=== PATIENT | female | born 1995 | race Caucasian/White ===

== ENCOUNTER 2019-12-09 07:35 | Day surgery (SDC) | payer MEDICAID ==
[~2019-12-09 07:35] MED LIST: Lactated Ringers 1,000 ML IV SCH; Lidocaine 1%/Sod Bicarbonate in NS 8.4% 1 ML Syringe IDERM PRN; Sodium Chloride 0.9% 10 ML Syringe FLUSH PRN
[2019-12-09] MEDS ORDERED: ceFAZolin 1 GM Vial ONE (07:48)
[2019-12-09] MEDS ORDERED: Lactated Ringers 1,000 ML ONE (07:48)
[2019-12-09] MEDS ORDERED: Ondansetron 4 MG/2 ML SDV ONE (07:48)
[2019-12-09] MEDS ORDERED: Lidocaine 1% 4 ML ONE (07:48)
[2019-12-09] MEDS ORDERED: fentaNYL 100 MCG/2 ML SDV ONE (07:49)
[2019-12-09] MEDS ORDERED: Propofol 200 MG/20 ML SDV ONE ×2 (07:49→08:58)
[2019-12-09] MEDS ORDERED: Lidocaine 1% 30 ML SDV ONE (07:59)
--- NOTE | 2019-12-09 08:17 | PCM.PREANE ---
Preanesthetic Assessment - Anesthesia/Transfusion/Family Hx Anesthesia History: Prior Anesthesia Without Reaction Family History of Anesthesia Reaction: No Transfusion History: No Prior Transfusion(s) Intubation History: Unknown - Review of Systems General: No Symptoms Pulmonary: No Symptoms (Guilherme daniel 10/04/2019: History: 1ppd times 6 years.) Cardiovascular: Lightheadedness (positional changes) Gastrointestinal: No Symptoms (16 weeks : FHT @ [id number]), Nausea, Vomiting Neurological: No Symptoms, Headache Other: Reports: None - Physical Assessment NPO Status Date: 12/08/19 NPO Status Time: 21:00 Vital Signs: Last Vital Signs Temp 36.3 C 12/09/19 07:30 Pulse 92 12/09/19 07:30 Resp 16 12/09/19 07:30 BP 112/76 12/09/19 07:30 Pulse Ox 98 12/09/19 07:30 Height: 1.63 m Weight: 61.235 kg ASA Class: 2 Mental Status: Alert & Oriented x3 Airway Class: Mallampati = 2 Dentition: Reports: Normal Dentition, Caries Thyro-Mental Finger Breadths: 3 Mouth Opening Finger Breadths: 3 ROM/Head Extension: Full Lungs: Clear to Auscultation, Normal Respiratory Effort Cardiovascular: Regular Rate, Regular Rhythm, No Murmurs - Lab Values: All labs reviewed and noted and within acceptable ranges to proceed with schedu led procedure. - Blood Product(s) Available: None - Anesthesia Plan Pre-Op Medication Ordered: None - Acknowledgements Anesthesia Type Planned: General Anesthesia, MAC Pt an Appropriate Candidate for the Planned Anesthesia: Yes Alternatives and Risks of Anesthesia Discussed w Pt/Guardian: Yes Pt/Guardian Understands and Agrees with Anesthesia Plan: Yes PreAnesthesia Questionnaire - CURRENT (IN HOUSE) MEDS Current Meds: Current Medications Lactated Ringer's (Ringers, Lactated) 1,000 mls @ 125 mls/hr IV ASDIRECTED STEVE Stop: 12/09/19 23:00 Lidocaine/Sodium Bicarbonate (Buffered Lidocaine 1% In Ns 8.4%) 0.25 ml IDERM ONETIME PRN PRN Reason: Prior to IV Start Stop: 12/09/19 18:00 Sodium Chloride (Saline Flush) 10 ml FLUSH ASDIRECTED PRN PRN Reason: Keep Vein Open Stop: 12/09/19 18:00 Discontinued Medications Cefazolin Sodium (Ancef) Confirm Administered Dose 2 gm .ROUTE .STK-MED ONE Stop: 12/09/19 07:49 Fentanyl (Sublimaze) Confirm Administered Dose 100 mcg .ROUTE .STK-MED ONE Stop: 12/09/19 07:50 Lidocaine HCl (Xylocaine-Mpf 1%) Confirm Administered Dose 4 mls @ as directed .ROUTE .STK-MED ONE Stop: 12/09/19 07:49 Lactated Ringer's (Ringers, Lactated) Confirm Administered Dose 1,000 mls @ as directed .ROUTE .STK-MED ONE Stop: 12/09/19 07:49 Lidocaine HCl (Xylocaine-Mpf 1%) Confirm Administered Dose 30 ml .ROUTE .STK-MED ONE Stop: 12/09/19 08:00 Ondansetron HCl (Zofran) Confirm Administered Dose 4 mg .ROUTE .STK-MED ONE Stop: 12/09/19 07:49 Propofol (Diprivan 20 Ml) Confirm Administered Dose 200 mg .ROUTE .STK-MED ONE Stop: 12/09/19 07:50
[2019-12-09] MEDS ORDERED: Metoclopramide 10 MG/2 ML SDV ONE (08:29)
[2019-12-09] MEDS ORDERED: Citric Acid/Sodium Citrate Solution 30 ML Cup ONE (08:29)
[2019-12-09] MEDS ORDERED: fentaNYL 100 MCG/2 ML SDV IVPUSH PRN (08:42)
[2019-12-09] MEDS ORDERED: diphenhydrAMINE 50 MG/ML SDV IVPUSH PRN (08:42)
[2019-12-09] MEDS ORDERED: ePHEDrine 50 MG/ML SDV IVPUSH PRN (08:42)
[2019-12-09] MEDS ORDERED: Ondansetron 4 MG/2 ML SDV IVPUSH PRN (08:42)
[2019-12-09] MEDS ORDERED: HYDROmorphone 0.5 MG/0.5 ML Syringe IVPUSH PRN (08:43)
[2019-12-09] MEDS ORDERED: Phenylephrine 1 MG in Sodium Chloride 0.9% 10 ML IV PRN (08:45)
[2019-12-09] MEDS ORDERED: HYDROmorphone 0.5 MG/0.5 ML Syringe ONE (08:47)
[2019-12-09] MEDS ORDERED: ePHEDrine Sulfate/0.9% NaCl/Pf 25 MG/5 ML SYRINGE IV ONE (09:23)
[2019-12-09] MEDS ORDERED: Bacitracin Oint 15 GM Tube ONE (09:33)
--- NOTE | 2019-12-09 09:51 | PCM48HPAN ---
Post Anesthesia Note - EVALUATION WITHIN 48HRS OF ANESTHETIC Vital Signs in Normal Range: Yes Patient Participated in Evaluation: Yes Respiratory Function Stable: Yes Airway Patent: Yes Cardiovascular Function Stable: Yes Hydration Status Stable: Yes Pain Control Satisfactory: Yes Nausea and Vomiting Control Satisfactory: Yes Mental Status Recovered: Yes Vital Signs: Last Vital Signs Temp 36.3 C 12/09/19 07:30 Pulse 92 12/09/19 07:30 Resp 16 12/09/19 07:30 BP 112/76 12/09/19 07:30 Pulse Ox 98 12/09/19 07:30
--- NOTE | 2019-12-09 10:20 | PCM.OPNOTE ---
- General Post-Op/Procedure Note Date of Surgery/Procedure: 12/09/19 Operative Procedure(s): Exam under anesthesia. Vaginoscopy. Excision of transverse vaginal septum Findings: External genitalia grossly normal. With gentle downward/outward traction on labia hymen is seen and appears normal with vaginal mucosa noted superior. With attempted speculum exam there is a wall of tissue about 2 cm past hymen with small, central defect. Dark blood noted to be coming from defect. With vaginoscopy cervix noted to be normal. Possible small polyp on cervix. No bleeding source noted. Cervix also noted to be normal with speculum exam at end of case. Pre Op Diagnosis: 16 1/7 wks. Vaginal bleeding. Vaginal septum - transverse Post-Op Diagnosis: Same Anesthesia Technique: MAC Primary Surgeon: Cindi Alex Anesthesia Provider: Chel Henry Pathology: None Fluid Replacement, Intraop: 1,100 Output, Urine Amount: 125 EBL in mLs: 5 Complications: None Condition: Good Free Text/Narrative:: Patient brought to OR where anesthesia was induced without difficulty. Patient placed in dorsal lithotomy position with Jony stirrups. Prepped and draped in typical fashion. Stauffer catheter inserted into the bladder. Exam showed findings as noted. Defect in septum gently stretched with a Bel clamp. Hysteroscope passed through defect in septum. Able to see cervix which appeared grossly normal. Remainder of upper vaginal cavity also appeared normal. No source for bleeding although initially a moderate amount of dark blood noted coming through vaginal septum. Hysteroscope withdrawn. A small amount of 1% lidocaine without epinephrine infiltrated into septum. Metzenbaum scissors used to sharply incise septum from central defect to vaginal maza. When doing this posteriorly a rectal exam was done to confirm area of dissection away from rectum. Intervening tissue then excised at base with Metzenbaum scissors. Vaginal mucosa reapproximated with several interrupted sutures of both 2-0 and 3-0 vicryl. At end of case able to place 2 fingers side by side into vagina. Speculum exam also completed which confirmed normal appearance of cervix and upper vagina. No lesion or abnormality appreciated. Bacitracin placed over dissection/suture site. Catheter removed. Patient awoken and taken to recovery. Will have patient follow up in 4 days and discuss initiation of vaginal dilator therapy. Given no discrete source of bleeding found and patient Rh negative did administer Rhogam
== END 2019-12-09 10:59 | disposition home or self-care (01) ==
LOC: JD.SDS 07:35
PROVIDERS: ATTEND Obstetrics & Gynecology
DX: O34.62 Maternal care for abnormality of vagina, second trimester (principal); Q52.11 Transverse vaginal septum; O20.9 Hemorrhage in early pregnancy, unspecified; Z87.891 Personal history of nicotine dependence; Z3A.16 16 weeks gestation of pregnancy
CPT/HCPCS: 36415; 57130; 85025; 86850; 86900; 86901; A9270; J0171; J0690; J1170; J2001; J2704; J2765; J2790; J7120; 00940; J2405; J3010

== ENCOUNTER 2019-12-27 17:05 | Observation (INO) | payer MEDICAID ==
[2019-12-27] MEDS ORDERED: Acetaminophen/oxyCODONE 325-5 MG Tab PO PRN (17:35)
[2019-12-27] MEDS: Lactated Ringers 1,000 ML IV SCH (17:55)
--- NOTE | 2019-12-27 19:00 | PCM.LDHP ---
L&D History of Present Illness - General Date of Service: 12/27/19 Admit Problem/Dx: Patient Status Order with Admit Dx/Problem 12/27/19 17:18 Patient Status [ADT] Routine Admission Diagnosis/Problem Admission Diagnosis/Problem - History of Present Illness Introduction:: 24 year old female at 18w2d presented to my clinic today with significant pain and bleeding. Had surgery 12/09/19 for a transverse vaginal septum. Reports that since that day she has soaked 1-10 pads a day and when she has "bad episodes of pain" she has more bleeding. Today in clinic she struggles to stand up straight walking back to room and before being seen soaked a pad and through to her pants in about 12 minutes. States that is about how her bleeding has been over the past two weeks but the pain today was significant enough since 10 am that she called clinic around 3. On my exam in clinic she filled the vaginal vault with blood x 3 but eventually I was able to evacuate enough to see that the blood was coming from the os. 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 No current thoughts of suicide at this time. Social & Family History - Family History Family Medical History: Noncontributory - Tobacco Use Smoking Status *Q: Former Smoker Used Tobacco, but Quit: Yes Month/Year Tobacco Last Used: 10/2019 Second Hand Smoke Exposure: No - Recreational Drug Use Recreational Drug Use: No H&P Review of Systems - Review of Systems: Review Of Systems: See Below General: Reports: No Symptoms HEENT: Reports: No Symptoms Pulmonary: Reports: No Symptoms Cardiovascular: Reports: No Symptoms Gastrointestinal: Reports: No Symptoms Genitourinary: Reports: Other (see hpi) Musculoskeletal: Reports: No Symptoms Skin: Reports: No Symptoms Psychiatric: Reports: No Symptoms Neurological: Reports: No Symptoms Hematologic/Lymphatic: Reports: No Symptoms Immunologic: Reports: No Symptoms L&D Exam - Exam Exam: See Below - Vital Signs Vital Signs: Last Vital Signs Temp 36.8 C 12/27/19 17:28 Pulse 85 12/27/19 17:28 Resp 14 12/27/19 17:28 BP 107/65 12/27/19 17:28 Pulse Ox 100 12/27/19 17:28 Weight: 63.503 kg - OB Specific Contraction Intensity: Mild Movement: Active Heart Tones: Present Presentation: Vertex - Exam General: Alert, Oriented HEENT: PERRLA, Conjunctiva Clear, EACs Clear, EOMI, Hearing Intact, Mucosa Moist & Bettles, Nares Patent, Normal Nasal Septum, Posterior Pharynx Clear, TMs Clear Neck: Supple, Trachea Midline Lungs: Clear to Auscultation, Normal Respiratory Effort Cardiovascular: Regular Rate, Regular Rhythm GI/Abdominal Exam: Normal Bowel Sounds, Soft Rectal Exam: Normal Exam, Normal Rectal Tone Back Exam: Normal Inspection, Full Range of Motion Extremities: Normal Inspection, Normal Range of Motion, Non-Tender, No Pedal Edema, Normal Capillary Refill Skin: Warm, Dry, Intact Neurological: Cranial Nerves Intact, Reflexes Equal Bilateral Psychiatric: Alert, Normal Affect, Normal Mood - Patient Data Lab Results Last 24 hrs: Laboratory Results - last 24 hr 12/27/19 12/27/19 Range/Units 17:35 17:35 WBC 11.98 H (3.98-10.04) K/mm3 RBC 3.64 L (3.98-5.22) M/mm3 Hgb 11.4 (11.2-15.7) gm/dl Hct 33.8 L (34.1-44.9) % MCV 92.9 (79.4-94.8) fl MCH 31.3 (25.6-32.2) pg MCHC 33.7 (32.2-35.5) g/dl RDW Std Deviation 45.8 (36.4-46.3) fL Plt Count 191 (182-369) K/mm3 MPV 11.2 (9.4-12.3) fl Neut % (Auto) 86.4 H (34.0-71.1) % Lymph % (Auto) 7.0 L (19.3-51.7) % [place] % (Auto) 5.3 (4.7-12.5) % Eos % (Auto) 0.8 (0.7-5.8) Baso % (Auto) 0.2 (0.1-1.2) % Neut # (Auto) 10.35 H (1.56-6.13) K/mm3 Lymph # (Auto) 0.84 L (1.18-3.74) K/mm3 [place] # (Auto) 0.64 H (0.24-0.36) K/mm3 Eos # (Auto) 0.10 (0.04-0.36) K/mm3 Baso # (Auto) 0.02 (0.01-0.08) K/mm3 Manual Slide Review Abnormal smear Blood Type A NEGATIVE Result Diagrams: 12/27/19 17:35 Problem List Initiated/Reviewed/Updated: Yes Orders Last 24hrs: Active Orders 24 hr Category Date Time Status Patient Status [ADT] Routine ADT 12/27/19 17:18 Active Vital Signs [RC] Q4HR Care 12/27/19 17:18 Active Regular Diet [DIET] Diet 12/28/19 Breakfast Active OB Ltd 1 or More Fetus [US] Routine Exams 12/27/19 17:20 Taken TYPE AND SCREEN [BBK] Stat Lab 12/27/19 17:35 Results Acetaminophen/oxyCODONE [Percocet 325-5 MG] Med 12/27/19 17:35 Active 2 tab PO Q4H PRN Lactated Ringers [Ringers, Lactated] 1,000 ml Med 12/27/19 17:45 Active IV ASDIRECTED Resuscitation Status Routine Resus Stat 12/27/19 17:17 Ordered Medication Orders Lactated Ringer's (Ringers, Lactated) 1,000 mls @ 125 mls/hr IV ASDIRECTED STEVE Last Admin: 12/27/19 17:55 Dose: 125 mls/hr Documented by: DERICK Oxycodone/Acetaminophen (Percocet 325-5 Mg) 2 tab PO Q4H PRN PRN Reason: Pain (moderate 4-6) Last Admin: 12/27/19 17:50 Dose: 2 tab Documented by: DERICK Assessment/Plan Comment:: 24 year old female at 18 weeks with significant bleeding, cramping and nury gohydramnios (near anhydramnios on ultrasound) Suspect inevitable miscarriage but bleeding and CBC stable. Discussed with Dr. Zuñiga with whom patient has appointment at 8:30 tomorrow. Patient aware I have concerns about low fluid and amount of bleeding but if remains stable and pain controlled will attempt to discharge in am to avoid transport cost and hope she can make it to [place] for consult. Watch closely over night - expectant management. Control pain.
--- NOTE | 2019-12-27 20:42 | US ---
Follow-up obstetrical ultrasound: Multiple real-time images were obtained transabdominally. Comparison: No previous obstetrical imaging. presentation: Breech Placenta: Anterior, no definite findings of placenta previa or abruption Amniotic fluid: Extreme oligohydramnios Measurements: BPD: 3.59 cm - 17 weeks 1 day Head circumference: 13.55 cm - 17 weeks 1 day Abdominal circumference: 14.20 cm - 19 weeks 4 days Femur length: 2.37 cm and a 17 weeks 1 day Estimated weight: 230 g (0 lbs. 8 oz.), estimated weight 69th percentile for age by current ultrasound Heart rate: 165 bpm Cervix: Very poorly seen but felt to be shortened at around 2.1 cm Impression: 1. Single intrauterine fetus. Dates as noted above. 2. No discrete findings of placenta previa or abruption. 3. Extreme oligohydramnios. 4. Shortened cervix. Diagnostic code #5 This report was dictated in MDT I agree with preliminary report from [facility], finalized on 12/27/19, 7:35 PM Central Daylight Time
[2019-12-28] MEDS: Lactated Ringers 1,000 ML IV SCH (06:07)
--- NOTE | 2019-12-28 06:20 | PCM.SN.2 ---
- Free Text/Narrative Note: Patient planning discharge after minimal to no bleeding over night. Plan to go to appointment in [place] but go up to the bathroom and felt something vaginally and called nurse who noted cord protruding from vagina. Patient informed of this and of inevitable delivery at this point. On exam cervix feels fingertip. Will plan cytotec. Dr. Alex will assume care this morning. Report given to her.
[2019-12-28] MEDS ORDERED: Misoprostol 200 MCG Tab VAG STA (06:49)
[2019-12-28] MEDS ORDERED: Misoprostol 200 MCG Tab ONE ×2 (06:51→12:18)
[2019-12-28] MEDS ORDERED: Ondansetron 4 MG/2 ML SDV IVPUSH PRN (06:51)
[2019-12-28] MEDS ORDERED: Morphine 2 MG/ML SYRINGE IVPUSH PRN (06:51)
--- NOTE | 2019-12-28 06:57 | PCM.PNLD ---
Labor Progress Note - VS & Meds Vital Signs: Last Vital Signs Temp 36.8 C 12/28/19 03:53 Pulse 67 12/28/19 03:53 Resp 14 12/28/19 03:53 BP 105/62 12/28/19 03:53 Pulse Ox 98 12/28/19 03:53 Active Medications: Current Medications Lactated Ringer's (Ringers, Lactated) 1,000 mls @ 125 mls/hr IV ASDIRECTED [facility] Last Admin: 12/28/19 06:07 Dose: 125 mls/hr Documented by: Lactated Ringer's (Ringers, Lactated) 1,000 mls @ 100 mls/hr IV ASDIRECTED [facility] Misoprostol (Cytotec) 400 mcg VAG Q4H STEVE Morphine Sulfate (Morphine) 2 mg IVPUSH Q1H PRN PRN Reason: Pain Ondansetron HCl (Zofran) 4 mg IVPUSH Q4H PRN PRN Reason: Nausea/Vomiting Oxycodone/Acetaminophen (Percocet 325-5 Mg) 2 tab PO Q4H PRN PRN Reason: Pain (moderate 4-6) Last Admin: 12/27/19 17:50 Dose: 2 tab Documented by: Discontinued Medications Misoprostol (Cytotec) 800 mcg VAG NOW STA Stop: 12/28/19 06:50 Last Admin: 12/28/19 06:55 Dose: 800 mcg Documented by: Misoprostol (Cytotec) Confirm Administered Dose 800 mcg .ROUTE .STK-MED ONE Stop: 12/28/19 06:52 - Uterine Contractions Contraction Intensity: Mild - Monitoring Heart Rate (FHR) Per Doppler: 60 (Bedside US shows an irregular HR that varies between 60-100) - Labor Progress (Free Text) Labor Progress: Patient physically feeling ok. No bleeding overnight. No significant pain or cramping currently. Reviewed again with patient early gestational age, ROM, and cord prolapse which occurred this morning. Do recommend moving forward with delivery. Did review abnormal appearance of FHR. Possible that baby may live through induction, but not thought to be likely. Reviewed that can take pictures, hand prints, foot prints, etc as patient would like after delivery. She expressed understanding. Reviewed risks of infection, bleeding with IOL. Also reviewed possibility of D&C for retained placenta. Will order PT, PTT this AM. First dose of 800 mcg of vaginal cytotec placed. Will then transition to 400 mcg q 4 hrs.
[2019-12-28] MEDS ORDERED: Lactated Ringers 1,000 ML IV SCH (07:00)
[2019-12-28] MEDS ORDERED: Misoprostol 200 MCG Tab VAG SCH (11:00)
[2019-12-28] MEDS ORDERED: Ibuprofen 600 MG Tab PO PRN (13:09)
[2019-12-28] MEDS ORDERED: Acetaminophen 325 MG Tab PO PRN (13:09)
--- NOTE | 2019-12-28 13:11 | PCM.DEL ---
L & D Note - General Info Date of Service: 12/28/19 - Delivery Note Cervical Ripening Method: Misoprostil Delivery Outcome: Stillbirth Delivery Method: Spontaneous Vaginal Delivery-Single Infant Delivery Mode: Spontaneous Presentation: Breech Nuchal Cord: None Anesthesia Type: None Episiotomy Type: None Laceration: None Placenta: Intact, Spontaneous Estimated Blood Loss: 100 Score 1 min: 0 Score 5 min: 0 Delivery Comments (Free Text/Narrative):: Presented to check on patient. Bedside US done and not able to document FHR. U S also notable for showing fetus to be present within vagina. Exam done and did show limbs/body in vagina. Patient encouraged to push. Lower limbs emerged first and then upper limbs. Exam did show head to be somewhat trapped within/above cervix. Patient given more time and with gentle exam able to successfully deliver head. Cord clamped and cut. Examination of baby showed grossly normal appearance. sex male. Patient given 600 mcg of buccal cytotec. Placenta did eventually deliver intact. Examination of perineum showed no lacerations - General Info Date of Service: 12/28/19 - Patient Data Vitals - Most Recent: Last Vital Signs Temp 36.6 C 12/28/19 08:00 Pulse 56 L 12/28/19 08:00 Resp 18 12/28/19 08:00 BP 101/62 12/28/19 08:00 Pulse Ox 97 12/28/19 08:00 Weight - Most Recent: 63.503 kg I&O - Last 24 Hours: Intake & Output 12/27/19 12/28/19 12/28/19 22:59 06:59 14:59 Output Total 475 800 Balance -475 -800 Lab Results Last 24 Hours: Laboratory Results - last 24 hr 12/27/19 12/27/19 12/28/19 Range/Units 17:35 17:35 04:48 WBC 11.98 H 9.74 (3.98-10.04) K/mm3 RBC 3.64 L 3.24 L (3.98-5.22) M/mm3 Hgb 11.4 10.4 L (11.2-15.7) gm/dl Hct 33.8 L 30.5 L (34.1-44.9) % MCV 92.9 94.1 (79.4-94.8) fl MCH 31.3 32.1 (25.6-32.2) pg MCHC 33.7 34.1 (32.2-35.5) g/dl RDW Std Deviation 45.8 45.7 (36.4-46.3) fL Plt Count 191 166 L (182-369) K/mm3 MPV 11.2 11.3 (9.4-12.3) fl Neut % (Auto) 86.4 H 74.0 H (34.0-71.1) % Lymph % (Auto) 7.0 L 17.0 L (19.3-51.7) % [place] % (Auto) 5.3 6.7 (4.7-12.5) % Eos % (Auto) 0.8 1.7 (0.7-5.8) Baso % (Auto) 0.2 0.4 (0.1-1.2) % Neut # (Auto) 10.35 H 7.20 H (1.56-6.13) K/mm3 Lymph # (Auto) 0.84 L 1.66 (1.18-3.74) K/mm3 [place] # (Auto) 0.64 H 0.65 H (0.24-0.36) K/mm3 Eos # (Auto) 0.10 0.17 (0.04-0.36) K/mm3 Baso # (Auto) 0.02 0.04 (0.01-0.08) K/mm3 Manual Slide Review Abnormal smear PT (9.7-12.0) SECONDS INR APTT (22-31) SECONDS COVID-19 (ELA) (NEGATIVE) Blood Type A NEGATIVE Gel Antibody Screen Positive 12/28/19 12/28/19 Range/Units 05:45 07:25 WBC (3.98-10.04) K/mm3 RBC (3.98-5.22) M/mm3 Hgb (11.2-15.7) gm/dl Hct (34.1-44.9) % MCV (79.4-94.8) fl MCH (25.6-32.2) pg MCHC (32.2-35.5) g/dl RDW Std Deviation (36.4-46.3) fL Plt Count (182-369) K/mm3 MPV (9.4-12.3) fl Neut % (Auto) (34.0-71.1) % Lymph % (Auto) (19.3-51.7) % [place] % (Auto) (4.7-12.5) % Eos % (Auto) (0.7-5.8) Baso % (Auto) (0.1-1.2) % Neut # (Auto) (1.56-6.13) K/mm3 Lymph # (Auto) (1.18-3.74) K/mm3 [place] # (Auto) (0.24-0.36) K/mm3 Eos # (Auto) (0.04-0.36) K/mm3 Baso # (Auto) (0.01-0.08) K/mm3 Manual Slide Review PT 10.6 (9.7-12.0) SECONDS INR 0.99 APTT 27 (22-31) SECONDS COVID-19 (ELA) Negative (NEGATIVE) Blood Type Gel Antibody Screen Med Orders - Current: Current Medications Acetaminophen (Tylenol) 650 mg PO Q4H PRN PRN Reason: mild pain or fever Lactated Ringer's (Ringers, Lactated) 1,000 mls @ 125 mls/hr IV ASDIRECTED [facility] Last Admin: 12/28/19 06:07 Dose: 125 mls/hr Documented by: Lactated Ringer's (Ringers, Lactated) 1,000 mls @ 100 mls/hr IV ASDIRECTED [facility] Ibuprofen (Motrin) 600 mg PO Q4H PRN PRN Reason: Mild pain or fever Misoprostol (Cytotec) 400 mcg VAG Q4H STEVE Last Admin: 12/28/19 11:14 Dose: 400 mcg Documented by: Morphine Sulfate (Morphine) 2 mg IVPUSH Q1H PRN PRN Reason: Pain Ondansetron HCl (Zofran) 4 mg IVPUSH Q4H PRN PRN Reason: Nausea/Vomiting Oxycodone/Acetaminophen (Percocet 325-5 Mg) 2 tab PO Q4H PRN PRN Reason: Pain (moderate 4-6) Last Admin: 12/27/19 17:50 Dose: 2 tab Documented by: Discontinued Medications Misoprostol (Cytotec) 800 mcg VAG NOW STA Stop: 12/28/19 06:50 Last Admin: 12/28/19 06:55 Dose: 800 mcg Documented by: Misoprostol (Cytotec) Confirm Administered Dose 800 mcg .ROUTE .STK-MED ONE Stop: 12/28/19 06:52 Last Admin: 12/28/19 11:14 Dose: Not Given Documented by: Misoprostol (Cytotec) Confirm Administered Dose 600 mcg .ROUTE .STK-MED ONE Stop: 12/28/19 12:19 - Problem List & Annotations (1) 18 weeks gestation of SNOMED Code(s): 31087268 Code(s): Z3A.18 - 18 WEEKS GESTATION OF Status: Acute (2) premature rupture of membranes SNOMED Code(s): 281229189 Code(s): O42.919 - PRETRM AMY ROM, UNSP TIME BETW RUPT AND ONST LABR, UNSP TRI Status: Acute Qualifiers: PROM onset of labor timing: unspecified duration between rupture of membranes and onset of labor Qualified Code(s): O42.919 - premature rupture of membranes, unspecified as to length of time between rupture and onset of labor, unspecified trimester (3) Cord prolapse SNOMED Code(s): 129910708, 833107758 Code(s): O69.0XX0 - LABOR AND DELIVERY COMPLICATED BY PROLAPSE OF CORD, UNSP Status: Acute Qualifiers: Fetus number: single or unspecified fetus Qualified Code(s): O69.0XX0 - Labor and delivery complicated by prolapse of cord, not applicable or unspeci fied (4) Vaginal delivery SNOMED Code(s): 032658024 Code(s): O80 - ENCOUNTER FOR FULL-TERM UNCOMPLICATED DELIVERY Status: Acute - Problem List Review Problem List Initiated/Reviewed/Updated: Yes - My Orders Last 24 Hours: My Active Orders 12/28/19 06:51 Morphine 2 mg IVPUSH Q1H PRN Ondansetron [Zofran] 4 mg IVPUSH Q4H PRN 12/28/19 07:00 Lactated Ringers [Ringers, Lactated] 1,000 ml IV ASDIRECTED 12/28/19 11:00 miSOPROStoL [Cytotec] 400 mcg VAG Q4H 12/28/19 13:09 Acetaminophen [TylenoL] 650 mg PO Q4H PRN Ibuprofen [Motrin] 600 mg PO Q4H PRN 12/28/19 13:10 RHOGAM, [RHIG WORKUP, ] [BBK] Routine Assess Lochia [WOMSER] Per Unit Routine Assess Uterine Involution [WOMSER] Per Unit Routine Perineal Care [OM.PC] Per Unit Routine - Assessment Assessment:: PPD#0 - Plan Plan:: Routine monitoring Will collect mementos as desired by patient RH negative - will given Rhogam Will discharge this PM if doing well
--- NOTE | 2019-12-28 16:44 | PCM.DCSUM1 ---
Discharge Summary - Discharge Data Discharge Date: 12/28/19 Discharge Disposition: Home, Self-Care 01 Condition: Good - Referral to Home Health Primary Care Physician: Maddie Carlos MD - Patient Summary/Data Complications: None Consults: None Recommended Follow-up Testing/Procedures: Follow up in 3 weeks for check Hospital Course: 24 y/o seen in clinic at 18 5/7 wks with significant abdominal pain and vaginal bleeding. US done did show oligohydramnios and patient thought likely be ruptured. She was admitted for monitoring. 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 Given this finding IOL started. This was done with cytotec. Did progress and underwent vaginal delivery. did well and was discharged home on PPD#0 - Patient Instructions Diet: Regular Diet as Tolerated Activity: As Tolerated Activity, Other: Pelvic rest for 3 weeks Driving: May Drive Today Showering/Bathing: May Shower Showering/Bathing, Other: May Bathe Notify Provider of: Fever, Increased Pain, Swelling and Redness, Drainage, Nausea and/or Vomiting - Discharge Plan *PRESCRIPTION DRUG MONITORING PROGRAM REVIEWED*: No *COPY OF PRESCRIPTION DRUG MONITORING REPORT IN PATIENT JHOANA: No Home Medications: Home Meds No122/Iron/Folic Acid [ Multi Tablet] 1 tab PO DAILY 12/09/19 [History] Acetaminophen [Tylenol] 650 mg PO Q4H PRN tablet 12/28/19 [Rx] Ibuprofen [Motrin] 600 mg PO Q4H PRN tablet 12/28/19 [Rx] Patient Handouts: Vaginal Delivery, Loss, Care After Referrals: Cindi Alex MD [Physician] - (3 weeks for post delivery check ) - Discharge Summary/Plan Comment DC Time >30 min.: No - Patient Data Vitals - Most Recent: Last Vital Signs Temp 36.6 C 12/28/19 15:59 Pulse 59 L 12/28/19 15:59 Resp 16 12/28/19 15:59 BP 90/64 12/28/19 15:59 Pulse Ox 99 12/28/19 15:59 Weight - Most Recent: 63.503 kg I&O - Last 24 hours: Intake & Output 12/28/19 12/28/19 12/28/19 06:59 14:59 22:59 Intake Total 500 Output Total 800 Balance -800 500 Lab Results - Last 24 hrs: Laboratory Results - last 24 hr 12/27/19 12/27/19 12/28/19 Range/Units 17:35 17:35 04:48 WBC 11.98 H 9.74 (3.98-10.04) K/mm3 RBC 3.64 L 3.24 L (3.98-5.22) M/mm3 Hgb 11.4 10.4 L (11.2-15.7) gm/dl Hct 33.8 L 30.5 L (34.1-44.9) % MCV 92.9 94.1 (79.4-94.8) fl MCH 31.3 32.1 (25.6-32.2) pg MCHC 33.7 34.1 (32.2-35.5) g/dl RDW Std Deviation 45.8 45.7 (36.4-46.3) fL Plt Count 191 166 L (182-369) K/mm3 MPV 11.2 11.3 (9.4-12.3) fl Neut % (Auto) 86.4 H 74.0 H (34.0-71.1) % Lymph % (Auto) 7.0 L 17.0 L (19.3-51.7) % [place] % (Auto) 5.3 6.7 (4.7-12.5) % Eos % (Auto) 0.8 1.7 (0.7-5.8) Baso % (Auto) 0.2 0.4 (0.1-1.2) % Neut # (Auto) 10.35 H 7.20 H (1.56-6.13) K/mm3 Lymph # (Auto) 0.84 L 1.66 (1.18-3.74) K/mm3 [place] # (Auto) 0.64 H 0.65 H (0.24-0.36) K/mm3 Eos # (Auto) 0.10 0.17 (0.04-0.36) K/mm3 Baso # (Auto) 0.02 0.04 (0.01-0.08) K/mm3 Manual Slide Review Abnormal smear PT (9.7-12.0) SECONDS INR APTT (22-31) SECONDS COVID-19 (ELA) (NEGATIVE) Blood Type A NEGATIVE Gel Antibody Screen Positive Screen 1 ros/5 flds - neg RhIG Candidate? Yes 12/28/19 12/28/19 Range/Units 05:45 07:25 WBC (3.98-10.04) K/mm3 RBC (3.98-5.22) M/mm3 Hgb (11.2-15.7) gm/dl Hct (34.1-44.9) % MCV (79.4-94.8) fl MCH (25.6-32.2) pg MCHC (32.2-35.5) g/dl RDW Std Deviation (36.4-46.3) fL Plt Count (182-369) K/mm3 MPV (9.4-12.3) fl Neut % (Auto) (34.0-71.1) % Lymph % (Auto) (19.3-51.7) % [place] % (Auto) (4.7-12.5) % Eos % (Auto) (0.7-5.8) Baso % (Auto) (0.1-1.2) % Neut # (Auto) (1.56-6.13) K/mm3 Lymph # (Auto) (1.18-3.74) K/mm3 [place] # (Auto) (0.24-0.36) K/mm3 Eos # (Auto) (0.04-0.36) K/mm3 Baso # (Auto) (0.01-0.08) K/mm3 Manual Slide Review PT 10.6 (9.7-12.0) SECONDS INR 0.99 APTT 27 (22-31) SECONDS COVID-19 (ELA) Negative (NEGATIVE) Blood Type Gel Antibody Screen Screen RhIG Candidate? Med Orders - Current: Current Medications Acetaminophen (Tylenol) 650 mg PO Q4H PRN PRN Reason: mild pain or fever Lactated Ringer's (Ringers, Lactated) 1,000 mls @ 125 mls/hr IV ASDIRECTED STEVE Last Admin: 12/28/19 06:07 Dose: 125 mls/hr Documented by: Lactated Ringer's (Ringers, Lactated) 1,000 mls @ 100 mls/hr IV ASDIRECTED STEVE Ibuprofen (Motrin) 600 mg PO Q4H PRN PRN Reason: Mild pain or fever Misoprostol (Cytotec) 400 mcg VAG Q4H STEVE Last Admin: 12/28/19 11:14 Dose: 400 mcg Documented by: Morphine Sulfate (Morphine) 2 mg IVPUSH Q1H PRN PRN Reason: Pain Ondansetron HCl (Zofran) 4 mg IVPUSH Q4H PRN PRN Reason: Nausea/Vomiting Oxycodone/Acetaminophen (Percocet 325-5 Mg) 2 tab PO Q4H PRN PRN Reason: Pain (moderate 4-6) Last Admin: 12/27/19 17:50 Dose: 2 tab Documented by: Discontinued Medications Misoprostol (Cytotec) 800 mcg VAG NOW STA Stop: 12/28/19 06:50 Last Admin: 12/28/19 06:55 Dose: 800 mcg Documented by: Misoprostol (Cytotec) Confirm Administered Dose 800 mcg .ROUTE .STK-MED ONE Stop: 12/28/19 06:52 Last Admin: 12/28/19 11:14 Dose: Not Given Documented by: Misoprostol (Cytotec) Confirm Administered Dose 600 mcg .ROUTE .STK-MED ONE Stop: 12/28/19 12:19 Last Admin: 12/28/19 12:42 Dose: 600 mcg Documented by:
== END 2019-12-28 17:22 | disposition home or self-care (01) ==
LOC: JD.OBCHECK 17:05 → JD.OB 17:07 → JD.OBCHECK 17:17 → JD.OB 17:18
PROVIDERS: ADMIT Obstetrics & Gynecology; ATTEND Obstetrics & Gynecology
DX: O42.912 Preterm premature rupture of membranes, unspecified as to length of time between rupture and onset of labor, second trimester (principal); O69.0XX0 Labor and delivery complicated by prolapse of cord, not applicable or unspecified; Z3A.18 18 weeks gestation of pregnancy; Z37.1 Single stillbirth; Z87.891 Personal history of nicotine dependence; Z01.812 Encounter for preprocedural laboratory examination; Z20.828 Contact with and (suspected) exposure to other viral communicable diseases
CPT/HCPCS: 36415; 59409; 76815; 85025; 85461; 85610; 85730; 86850; 86870; 86900; 86901; 87635; 88305; 96360; 96361; A9270; G0378; J2790; J7120; U0002